=== PATIENT | male | born 1980 | race Caucasian/White ===

== ENCOUNTER 2017-03-26 06:36 | Emergency (ER) | payer OTHER ==
[2017-03-26 06:46] VITALS: BP 134/80
== END 2017-03-26 07:13 | disposition home or self-care (01) ==
LOC: ED 06:36
DX: K64.9 Unspecified hemorrhoids (principal)

== ENCOUNTER 2018-03-19 07:43 | Emergency (ER) | payer OTHER ==
[~2018-03-19] VITALS: Ht 175.3 cm; Wt 68.5 kg
[2018-03-19 07:49] VITALS: BP 129/76; Ht 175.3 cm; Wt 68.5 kg
== END 2018-03-19 08:12 | disposition home or self-care (01) ==
LOC: ED 07:43
DX: L70.0 Acne vulgaris (principal)

== ENCOUNTER 2018-06-06 19:39 | Emergency (ER) | payer OTHER ==
[2018-06-06 19:42] VITALS: Ht 175.3 cm
[2018-06-06 20:48] LABS: BASOPHIL % 0.4 % (0-2); PLATELET COUNT 388 x10^3mcL (130-400); RED CELL DISTRIBUTION WIDTH 12.8 % (11.5-14.5)
[2018-06-06 20:50] LABS: CALCIUM 9.1 mg/dL (8.5-10.1); CARBON DIOXIDE 28.7 mmol/L (21-32); CHLORIDE SERUM 96 mmol/L (98-107); CREATININE SERUM 1.1 mg/dL (0.7-1.3); GFR1 > 60 mL/min; GLUCOSE SERUM 149 mg/dL (74-106); POTASSIUM SERUM 3.3 mmol/L (3.5-5.1); SODIUM SERUM 136 mmol/L (136-145)
[2018-06-06 20:54] LABS: ALBUMIN 4.4 g/dL (3.4-5.0); ALKALINE PHOSPHATASE 144 U/L (46-116); ALT/SGPT 40 U/L (16-63); AMYLASE 63 U/L (25-115); AST/SGOT 26 U/L (15-37); BILIRUBIN TOTAL 0.7 mg/dL (0.20-1.00); LIPASE 262 IU/L (73-393)
[2018-06-06 20:56] LABS: TOTAL PROTEIN, SERUM 9.3 g/dL (6.4-8.2)
[2018-06-06 22:44] LABS: UA SPECIFIC GRAVITY 1.025 (1.005-1.035); microscopic required? YES; urine erythrocyte 1+ (NEGATIVE)
[2018-06-06 23:02] LABS: AMPHETAMINE QUAL UR NONE DETECTED (See below)
[2018-06-07 00:36] VITALS: BP 117/84
== END 2018-06-07 00:36 | disposition home or self-care (01) ==
LOC: ED 19:39
PROVIDERS: Emergency Medicine
DX: F12.988 Cannabis use, unspecified with other cannabis-induced disorder (principal); E87.6 Hypokalemia
CPT/HCPCS: J2405; J3490; J7030; Q0162

== ENCOUNTER 2019-02-15 09:56 | Emergency (ER) | payer OTHER ==
[~2019-02-15] VITALS: Ht 175.3 cm; Wt 66.7 kg
[2019-02-15 10:03] VITALS: Ht 175.3 cm; Wt 66.7 kg
[2019-02-15 10:59] LABS: BASOPHIL % 0.3 % (0-2); PLATELET COUNT 387 x10^3mcL (130-400); RED CELL DISTRIBUTION WIDTH 12.9 % (11.5-14.5)
[2019-02-15 11:02] LABS: CALCIUM 10.1 mg/dL (8.5-10.1); CARBON DIOXIDE 24.6 mmol/L (21-32); CHLORIDE SERUM 95 mmol/L (98-107); GFR1 > 60 mL/min; GLUCOSE SERUM 133 mg/dL (74-106); POTASSIUM SERUM 3.2 mmol/L (3.5-5.1); SODIUM SERUM 134 mmol/L (136-145)
[2019-02-15 11:06] LABS: ALBUMIN 4.7 g/dL (3.4-5.0); ALKALINE PHOSPHATASE 135 U/L (46-116); ALT/SGPT 37 U/L (16-63); AST/SGOT 20 U/L (15-37); BILIRUBIN TOTAL 0.71 mg/dL (0.20-1.00); LIPASE 81 IU/L (73-393)
[2019-02-15 11:10] LABS: TOTAL PROTEIN, SERUM 9.5 g/dL (6.4-8.2)
[2019-02-15 11:30] LABS: UA SPECIFIC GRAVITY >=1.030 (1.005-1.035); microscopic required? YES; urine erythrocyte 1+ (NEGATIVE)
[2019-02-15 11:39] LABS: AMPHETAMINE QUAL UR NONE DETECTED (See below)
[2019-02-15 14:01] VITALS: BP 138/81
== END 2019-02-15 14:58 | disposition home or self-care (01) ==
LOC: ED 09:56
PROVIDERS: Emergency Medicine
DX: F12.988 Cannabis use, unspecified with other cannabis-induced disorder (principal); E87.8 Other disorders of electrolyte and fluid balance, not elsewhere classified; E86.0 Dehydration
CPT/HCPCS: J1630; J2060; J7030

== ENCOUNTER 2019-03-28 05:55 | Emergency (ER) | payer OTHER ==
[~2019-03-28] VITALS: Ht 175.3 cm; Wt 70.3 kg
[2019-03-28 05:58] VITALS: Ht 175.3 cm; Wt 70.3 kg
[2019-03-28 06:41] LABS: CALCIUM 9.1 mg/dL (8.5-10.1); CHLORIDE SERUM 96 mmol/L (98-107); CREATININE SERUM 0.9 mg/dL (0.7-1.3); GFR1 > 60 mL/min; GLUCOSE SERUM 123 mg/dL (74-106); POTASSIUM SERUM 3.1 mmol/L (3.5-5.1); SODIUM SERUM 137 mmol/L (136-145)
[2019-03-28 06:45] LABS: BASOPHIL % 0.2 % (0-2); PLATELET COUNT 382 x10^3mcL (130-400); RED CELL DISTRIBUTION WIDTH 12.6 % (11.5-14.5)
[2019-03-28 06:46] LABS: ALBUMIN 4.1 g/dL (3.4-5.0); ALKALINE PHOSPHATASE 117 U/L (46-116); ALT/SGPT 38 U/L (16-63); AST/SGOT 21 U/L (15-37); BILIRUBIN TOTAL 1.1 mg/dL (0.20-1.00); LIPASE 109 IU/L (73-393); TOTAL PROTEIN, SERUM 8.2 g/dL (6.4-8.2)
[2019-03-28 07:56] LABS: AMPHETAMINE QUAL UR NONE DETECTED (See below)
[2019-03-28 08:11] LABS: UA SPECIFIC GRAVITY 1.025 (1.005-1.035); microscopic required? YES; urine erythrocyte TRACE (NEGATIVE)
[2019-03-28 09:21] VITALS: BP 128/88
== END 2019-03-28 09:21 | disposition home or self-care (01) ==
LOC: ED 05:55
PROVIDERS: Emergency Medicine
DX: F12.188 Cannabis abuse with other cannabis-induced disorder (principal); E87.6 Hypokalemia
CPT/HCPCS: J1630; J2060; J7030

== ENCOUNTER 2019-10-19 06:33 | Emergency (ER) | payer OTHER ==
[~2019-10-19] VITALS: Ht 175.3 cm; Wt 67.2 kg
[2019-10-19 06:38] VITALS: Ht 175.3 cm; Wt 67.2 kg
[2019-10-19 07:25] LABS: BASOPHIL % 1.2 % (0-2); PLATELET COUNT 269 x10^3mcL (130-400); RED CELL DISTRIBUTION WIDTH 12.8 % (11.5-14.5)
[2019-10-19 07:52] LABS: CALCIUM 8.2 mg/dL (8.5-10.1); CARBON DIOXIDE 30.8 mmol/L (21-32); CHLORIDE SERUM 102 mmol/L (98-107); CREATININE SERUM 1.1 mg/dL (0.7-1.3); GFR1 > 60 mL/min; GLUCOSE SERUM 145 mg/dL (74-106); SODIUM SERUM 140 mmol/L (136-145)
[2019-10-19 07:56] LABS: ALBUMIN 3.9 g/dL (3.4-5.0); ALKALINE PHOSPHATASE 110 U/L (46-116); ALT/SGPT 31 U/L (16-63); AST/SGOT 19 U/L (15-37); BILIRUBIN TOTAL 0.6 mg/dL (0.20-1.00); LIPASE 692 IU/L (73-393); TOTAL PROTEIN, SERUM 7.8 g/dL (6.4-8.2)
[2019-10-19 09:27] LABS: AMPHETAMINE QUAL UR NONE DETECTED (See below)
[2019-10-19 09:47] LABS: UA SPECIFIC GRAVITY 1.025 (1.005-1.035); microscopic required? YES; urine erythrocyte TRACE (NEGATIVE)
[2019-10-19 10:46] VITALS: BP 131/78
== END 2019-10-19 10:46 | disposition home or self-care (01) ==
LOC: ED 06:33
PROVIDERS: Emergency Medicine
DX: F12.188 Cannabis abuse with other cannabis-induced disorder (principal); F17.210 Nicotine dependence, cigarettes, uncomplicated
CPT/HCPCS: J1630; J2405